=== PATIENT | female | born 1995 | race Caucasian/White ===

== ENCOUNTER → 2020-05-16 12:05 | Outpatient (CLI) | payer BC, SELFPAY ==
--- NOTE | ~2020-05-16 | US_ITS ---
EXAMINATION: US transvaginal DATE: 05/16/2020 12:32 INDICATION: Gestational dating TECHNIQUE: Real-time transabdominal and transvaginal obstetric ultrasound. FINDINGS: No prior studies for comparison. The uterus measures 8.4 x 5.5 x 5.9 cm. There is an intrauterine gestational sac, with pole sanaz ntified. The crown rump length measures 0.74 cm, which correlates with a estimated gestational age o f 6 weeks 4 days. heart tones are identified measuring 141 bpm. There are right ovarian cysts , largest measuring 2 cm. Left ovary is unremarkable. IMPRESSION: 1. SL IUP with an EGA of 6 weeks, 4 days (EDC by current ultrasound of 01/05/2021). Reviewed, dictated and finalized at location A. [employer] IMPRESSION: 1. SL IUP with an EGA of 6 weeks, 4 days (EDC by current ultrasound of 01/06/20 21).
== END ==
PROVIDERS: Visit Provider Nurse Practitioner
DX: Z34.91 Encounter for supervision of normal pregnancy, unspecified, first trimester (principal); Z3A.01 Less than 8 weeks gestation of pregnancy; N83.291 Other ovarian cyst, right side
CPT/HCPCS: 76830